=== PATIENT | male | born 1990 | race Caucasian/White ===

== ENCOUNTER 2025-03-08 15:34 | Emergency (ER) | payer OTHER ==
[~2025-03-08] VITALS: Ht 177.8 cm; Wt 71.6 kg
[2025-03-08] MEDS: KETOROLAC 60 MG/2 ML VIAL IM ONE (17:54)
[2025-03-08] MEDS: ACETAMINOPHEN 325 MG TAB PO ONE (17:54)
[2025-03-08 19:28] VITALS: BP 122/62; TEMP 98.5; O2SAT 97
[2025-03-08] MEDS ORDERED: NAPR-837 PO (19:35)
[2025-03-08] MEDS ORDERED: METH-1165 PO (19:35)
== END 2025-03-08 19:41 | disposition home or self-care (01) ==
LOC: M ED 15:34
DX: S39.012A Strain of muscle, fascia and tendon of lower back, initial encounter (principal); Y92.9 Unspecified place or not applicable; Y93.9 Activity, unspecified; Y99.9 Unspecified external cause status; Z79.899 Other long term (current) drug therapy
CPT/HCPCS: 72110; 96372; 99283; J1885